=== PATIENT | male | born 1965 | race Caucasian/White ===

== ENCOUNTER → 2017-03-09 15:57 | Outpatient (CLI) | payer OTHER ==
[2016-01-28 08:01] VITALS: BMI 25.5
[~2017-03-09 15:57] MED LIST: CIPROFLOXACIN750 MG PO; FLAGYL500 MG; FLAGYL500 MG PO; FLORASTOR250 MG PO; HYDROCODON-ACE1 EAC7 PO; LEVAQUIN500 MG PO; PEPCID20 MG PO; ZOFRAN ODT4 MG/UDTAB PO
== END | disposition home or self-care (01) ==
LOC: D.CT 15:57
DX: R10.9 Unspecified abdominal pain (principal)